=== PATIENT | female | born 1980 | race Caucasian/White ===

== ENCOUNTER 2016-07-29 13:15 | Inpatient (IN) | payer BC ==
[2016-07-29] MEDS ORDERED: Buffered Lidocaine 1% SYRIN* 3 ML/SYR SYRINGE INTRADERM PRN (15:24)
[2016-07-29] MEDS ORDERED: Lidocaine 1% MPF* 2 ML VIAL ONE (16:01)
[2016-07-29 16:42] LABS: Hematocrit 35 % (35-47); Hemoglobin 11.3 g/dl (12.0-16.0); Mean Corpuscular HGB Conc 33 g/dl (31-36); Mean Corpuscular Hemoglobin 29 pg (27-31); Mean Corpuscular Volume 88 fL (80-97); Mean Platelet Volume 9 um3 (7.4-10.4); Red Blood Count 3.94 10^6/ul (4.0-5.4); Red Cell Distribution Width 14 % (10.5-15); White Blood Count 10.5 10^3/ul (3.5-10.8)
[2016-07-29] MEDS ORDERED: OBEPIDURAL* 250 ML ONE (18:02)
[2016-07-29] MEDS ORDERED: Famotidine TAB* 20 MG PO PRN (18:56)
[2016-07-29] MEDS ORDERED: EPHEDrine (Pressors)* 50 MG/ML VIAL IV PUSH PRN ×2 (18:56)
[2016-07-29] MEDS ORDERED: Phenylephrine IV* 40 MCG/ML 10 ML SYRINGE IV PUSH PRN ×2 (18:56)
[2016-07-29] MEDS ORDERED: Sodium Citrate/Citric Acid* 15 ML UDC PO PRN (18:56)
[2016-07-29] MEDS ORDERED: OBEPIDURAL* 250 ML EPIDURAL SCH (19:00)
[2016-07-29] MEDS ORDERED: Oxytocin in LR* 20 UNITS/1,000 ML BAG IVPB ONE (19:31)
[2016-07-29] MEDS ORDERED: Oxytocin in LR* 20 UNITS/1,000 ML BAG IVPB SCH ×2 (20:00→23:45)
[2016-07-29] MEDS ORDERED: RHO D Immune Globulin (HUMAN)* 300 MCG = 1,500 I.U. INJ IM ONE (23:30)
[2016-07-29] MEDS ORDERED: Glycerin ADULT SUPP PR PRN (23:30)
[2016-07-29] MEDS ORDERED: Acetaminophen TAB* 325 MG PO PRN (23:30)
[2016-07-29] MEDS ORDERED: oxyCODONE/Acetamin 5/325 MG* TAB PO PRN (23:30)
[2016-07-30] MEDS: Witch Hazel PAD* JAR TOPICAL PRN ×2 (01:21→19:07)
[2016-07-30] MEDS: Dibucaine 1% 28.35 GM TUBE PR PRN ×2 (01:22→19:07)
[2016-07-30] MEDS: Ibuprofen TAB* 600 MG PO PRN ×2 (01:24→19:07)
[2016-07-30 06:20] LABS: Hematocrit 31 % (35-47); Hemoglobin 10.4 g/dl (12.0-16.0); Mean Corpuscular HGB Conc 33 g/dl (31-36); Mean Corpuscular Hemoglobin 29 pg (27-31); Mean Corpuscular Volume 88 fL (80-97); Mean Platelet Volume 9 um3 (7.4-10.4); Red Blood Count 3.59 10^6/ul (4.0-5.4); Red Cell Distribution Width 13 % (10.5-15); White Blood Count 11.5 10^3/ul (3.5-10.8)
[2016-07-30] MEDS ORDERED: Simethicone CHEW TAB* 80 MG PO SCH (08:30)
[2016-07-30] MEDS: Docusate CAP* 100 MG PO SCH ×3 (08:53→20:10)
[2016-07-30] MEDS ORDERED: Ferrous Gluconate TAB* 324 MG TAB PO SCH (09:00)
[2016-07-31] MEDS: Ibuprofen TAB* 600 MG PO PRN ×2 (00:55→08:35)
[2016-07-31 08:15] VITALS: BP 106/67
[2016-07-31] MEDS: Docusate CAP* 100 MG PO SCH (08:35)
== END 2016-07-31 11:05 | disposition home or self-care (01) | DRG 560 ==
LOC: MCHOBOUT 13:15 → MCHOB 15:26
PROVIDERS: ADMIT Midwife; ATTEND Midwife
PROC: 10907ZC Drainage of Amniotic Fluid, Therapeutic from Products of Conception, Via Natural or Artificial Opening (ICD-10-PCS; principal; 2016-07-29)
PROC: 10E0XZZ Delivery of Products of Conception, External Approach (ICD-10-PCS; 2016-07-29)
PROC: 4A1HXCZ Monitoring of Products of Conception, Cardiac Rate, External Approach (ICD-10-PCS; 2016-07-29)
PROC: 0KQM0ZZ Repair Perineum Muscle, Open Approach (ICD-10-PCS; 2016-07-29)
DX: O70.1 Second degree perineal laceration during delivery (principal); Z37.0 Single live birth; O09.523 Supervision of elderly multigravida, third trimester; Z3A.39 39 weeks gestation of pregnancy; Z82.79 Family history of other congenital malformations, deformations and chromosomal abnormalities; Z82.49 Family history of ischemic heart disease and other diseases of the circulatory system; Z87.891 Personal history of nicotine dependence
CPT/HCPCS: 36415; 85025; 86850; 86870; 86880; 86900; 86901; A9270-GY

== ENCOUNTER → 2018-07-19 05:34 | Day surgery (SDC) | payer OTHER ==
[~2018-07-19 05:34] MED LIST: Atracurium* 10 MG/ML 10 ML VIAL ONE; Buffered Lidocaine 1% SYRIN* 1 ML/SYRINGE INTRADERM ONE; Bupivacaine 0.25% SDV PF* 10 ML VIAL INJ ONE; Bupivacaine 0.25% W/EPI* 10 ML SDV ONE; Bupivacaine 0.5% W/EPI SDV* 30 ML VIAL ONE; Dexamethasone IV* 4 MG/ML 1 ML (4 MG) IV SLOW PU ONE; Dexamethasone IV* 4 MG/ML 1 ML (4 MG) ONE; DiMENhydriNATE IV* 50 MG/ML VIAL IV PUSH PRN; Famotidine IV* 10 MG/ML 2 ML (20 mg) IV ONE; Famotidine IV* 10 MG/ML 2 ML (20 mg) ONE; Ketorolac INJ* 30 MG/ML 1 ML VIAL ONE; Lactated Ringers 1000 ML Bag* 1,000 ML IV SCH; Lidocaine 1% INJ* 10 MG/ML 30 ML SDV ONE; Midazolam* 1 MG/ML 5 ML VIAL (5 MG) ONE; Naloxone* 0.4 MG/ML 1 ML VIAL IV PRN; Ondansetron INJ* 2 MG/ML VIAL IV PRN; Ondansetron INJ* 2 MG/ML VIAL ONE; Propofol* 10 MG/ML 20 ML BTL ONE; ceFAZolin 2 GM in NS PREMIX(*) 2 GM/100 ML BAG IVPB ONE; fentaNYL* 50 MCG/ML 2 ML VIAL (100 MCG VIAL) IV PRN; fentaNYL* 50 MCG/ML 5 ML VIAL (250 MCG VIAL) ONE; oxyCODONE/Acetamin 5/325 MG* TAB PO PRN
[2018-07-19 10:12] VITALS: BP 110/76
--- NOTE | 2018-07-19 23:24 | OP ---
DATE OF OPERATION: 07/19/18 - [facility] DATE OF : 80 SURGEON: Steve Harvey MD RN INFORMATICS: Kathryn Mera NP ANESTHESIA: Local with monitored anesthesia care with Dr. Yoder. PRE-OP DIAGNOSIS: Epigastric hernia. POST-OP DIAGNOSIS: Epigastric hernia. OPERATIVE PROCEDURE: Open repair with mesh of a midline epigastric hernia. ESTIMATED BLOOD LOSS: Minimal. SPECIMENS: None. COMPLICATIONS: None. DRAINS: None. WOUND CLASSIFICATION: 1. DESCRIPTION OF PROCEDURE: Written informed consent was obtained, the abdomen was marked with indelible ink and preoperative antibiotics were administered. The patient was taken to the operating room and placed in the supine position. Sequential compression devices and warming blanket were applied. Anesthesia was administered and the abdomen was prepped and draped in the usual sterile fashion. Time-out verification was completed. A small palpable bulge with hernia defect was approximately 2 to 3 fingerbreadths superior to the umbilicus at the midline. A small transverse incision was made just above the umbilicus. I did excise some scar tissue from a previous umbilical ring more superiorly. Our dissection carried down to the subcutaneous tissue, identified a rather large amount of fat protruding up through a midline fascial defect consistent with an epigastric hernia of approximately 1.5 to 2 cm in diameter. This fat was easily reduced and I developed a preperitoneal space undermining the fascia circumferentially for at least 2 cm margin surrounding the hernia. Next, a 6.4 cm Bard Ventralex dual-coated mesh was then placed in the preperitoneal space. I did not enter the peritoneum. This was sutured into position using the attached straps with 2 separate horizontal mattress 0 Vicryl suture. The mesh set nicely without evidence of wrinkling and covered the defect with generous overlap. The chalkyitsik fascia was then closed with interrupted 0 Vicryl suture in a transverse orientation. This additional Marcaine was infiltrated. The skin and subcutaneous tissue were closed with layers of 3-0 with 4-0 Vicryl sutures. Steri-Strips and sterile dressings were applied. The patient tolerated the procedure well and was taken to the recovery room in stable condition. [id number]/[facility] #: [id number] [facility]ITAL[facility]
== END | disposition home or self-care (01) ==
LOC: OR 05:34
PROVIDERS: ATTEND Surgery
DX: K43.9 Ventral hernia without obstruction or gangrene (principal); F32.9 Major depressive disorder, single episode, unspecified
CPT/HCPCS: 81025; C1781; J0690; J1100; J1885; J2250; J2405; J2704; J3010; J3490

== ENCOUNTER 2018-08-30 18:56 | Emergency (ER) | payer OTHER ==
--- OUTSIDE RECORDS SUMMARY | 2018-08-30 19:24 | XMS REPORT | Continuity of Care Document ---
:1980 External Reference #:[id number] Author Name TAYLER Sanchez Address [address] [facility] [facility] [place] [address] Care Team Providers Name Role Phone Yoko Gomes M.D. 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 Primary Care Physician Unavailable Payers Date Identification Numbers Payment Provider Subscriber Effective: 2018 Policy Number: [id number] Cign[employer]-MVP Dex Ospina Group Number: [id number] [id number] PayID: [id number] [place] [address] Effective: 2017 Policy Number: [id number] [employer] Nap Dex Ospina Expires: 2018 Group Name: [employer] [address] PayID: [id number] [place] [address] Advance Directives Description No Information Available Problems Active Problems Provider Date Premenstrual dysphoric disorder Yoko Gomes M.D. Onset: 02/10/2018 Family History Date Family Member(s) Observation Comments Father Diabetes Mellitus, II Father 75 Father Skin Cancer Mother Hypertension Mother 81 Mother Breast Cancer at age 76 Siblings 2 First Brother Diverticulitis Second Brother No Current Problems Paternal Grandmother due to Aneurysm () Social History Type Date Description Comments Sex Unknown Education Highest level completed, Associates Degree Education Highest level completed, Vocational Degree Marital Status Has been 1 time Lives With Spouse Lives With Children son and daughter Diet Healthy, Well Balanced Sleep Typically sleeps 9 hours a night Smoke-Free Home is smoke-free Pets 1 dog Pets 1 cat Work Status Unemployed Tobacco Use Start: Unknown End: Former Cigarette Smoker Unknown 1-5 Cigarettes Daily ETOH Use Denies alcohol use Recreational Drug Use Denies Drug Use Tobacco Use Start: Unknown End: Patient is a former Unknown smoker Exercise Type/Frequency Exercises regularly cardio, 30 min Allergies, Adverse Reactions, Alerts Active Allergies Reaction Severity Comments Date Lactose 04/12/2018 Inactive Allergies NKDA 08/08/2016 Medications Active Medications SIG Qnty Indications Ordering Provider Date Amoxicillin/Clavulana 1 by mouth twice 20tabs J06.9 Lissa Duran, TEACHER MUSIC 04/2019 te Potassium a day with food 875-125mg for 10 days Tablets Lorazepam 1 tab twice a 30tabs Junior Lin 05/18/2018 1mg Tablets day as needed MD Gilma Sertraline HCL 1.5 tabs by 45tabs Yoko Gomes M.DSandra 100mg mouth every day Tablets History Medications Lorazepam 1/2 tab bid prn 30tabs Yoko Gomes, 05/10/2018 - 1mg Tablets M.D. 05/10/2018 Lorazepam 1 pill bid prn 30tabs Yoko Gomes, 05/10/2018 - 0.5mg Tablets M.D. 05/18/2018 No Active Medications Unknown 08/08/2016 - 02/10/2018 Amoxicillin 1 by mouth three 30tabs 465.8 Lissa Duran, 07/21/2014 - 500mg times a day for TEACHER MUSIC 08/07/2016 Tablets 10 days Multivitamin Unknown - 08/07/2016 Tablets Lorazepam 1 by mouth twice Unknown - 0.5mg Tablets a day as needed 05/10/2018 anxiety Immunizations CPT Code Status Date Vaccine Lot # [id number] Given 02/10/2018 Influenza Vac, Quadrivalent, Slit Virus, Im [id number] Vital Signs Date Vital Result Comment 08/13/2018 9:32am BP Systolic 98 mmHg BP Diastolic 66 mmHg Heart Rate 62 /min Body Temperature 97.2 F Respiratory Rate 16 /min O2 % BldC Oximetry 97 % Ra Height 66.5 inches 5'6.50" Weight 176.00 lb BMI (Body Mass Index) 28.0 kg/m2 04/12/2018 6:22pm BP Systolic 118 mmHg BP Diastolic 60 mmHg Heart Rate 66 /min Body Temperature 97.9 F Respiratory Rate 16 /min Height 66.5 inches 5'6.50" Weight 175.25 lb BMI (Body Mass Index) 27.9 kg/m2 Right Visual Acuity Distance 20/70 Left Visual Acuity Distance 20/40 02/10/2018 8:50am BP Systolic 128 mmHg BP Diastolic 70 mmHg Heart Rate 72 /min Body Temperature 97.3 F Height 68 inches 5'8" Weight 183.00 lb BMI (Body Mass Index) 27.8 kg/m2 08/08/2016 1:03pm BP Systolic 90 mmHg BP Diastolic 52 mmHg Heart Rate 84 /min Body Temperature 98.2 F Height 66.75 inches 5'6.75" Weight 191.12 lb BMI (Body Mass Index) 30.2 kg/m2 07/21/2014 11:08am BP Systolic 102 mmHg BP Diastolic 62 mmHg Heart Rate 80 /min Body Temperature 98.2 F Height 66.75 inches 5'6.75" Weight 205.00 lb BMI (Body Mass Index) 32.3 kg/m2 Results Test Date Facility Test Result H/L Range Note Laboratory test 05/15/2018 R[facility] Wilburn TSH 1.43 mIU/L 0.50-6.00 finding CBC Electronic Fma 05/15/2018 R[facility] Wilburn WBC 6.4 x10^3/UL 4.0-10.0 RBC 4.65 x10^6/UL 3.93-6.00 HGB 14.3 g/dL 12.0-17.0 HCT 45 % 35-50 MCV 95.0 fL 80.0-95.0 MCH 30.8 pg 25.6-32.2 MCHC 32.2 g/dL 32.2-36.0 RDW-CV 13.0 % 11.6-14.4 PLT 244 x10^3/UL 163-400 MPV 10.9 fL 9.4-12.4 Minnie# 4.00 x10^3/UL 1.56-6.13 Lymph# 1.71 x10^3/UL 1.18-3.74 Murray# 0.48 x10^3/UL 0.24-0.82 Eos # 0.1 x10^3/UL 0.0-0.5 Baso # 0.05 x10^3/UL 0.01-0.08 Minnie% 62.8 % 34.0-70.0 Lymph % 26.8 % 20.0-52.0 Murray% 7.5 % 5.0-12.0 Eos% 1.9 % 0.7-7.0 Baso% 0.8 % 0.1-1.2 Comprehensive Metabolic Prof 05/15/2018 Rink[facility] Wilburn Sodium 142 mEq/L 134-149 Potassium 4.6 mEq/L 3.6-5.5 Chloride 109 mEq/L 94-112 Carbon Dioxide 25 mEq/L 21-32 Glucose 101 mg/dL 70-105 BUN 9 mg/dL 6-26 Creatinine 0.8 mg/dL 0.6-1.4 BUN/Creat Ratio 11.3 CALC 8.0-36.0 Calcium 9.6 mg/dL 8.6-10.2 Total Protein 6.8 g/dL 6.4-8.3 Albumin 4.7 g/dL 3.8-5.5 Globulin 2.1 g/dL 2.0-4.8 A/G Ratio 2.2 CALC 0.6-2.3 Alk. Phosphatase 66 U/L 30-110 Alt (SGPT) 16 U/L 7-35 Ast (Sgot) 16 U/L 5-34 Total Bilirubin 0.9 mg/dL 0.2-1.3 GFR Non- >60 ml/min/1.73m^ >=60 GFR >60 ml/min/1.73m^ >=60 Lipid Profile 05/15/2018 Rinku Wilburn Cholesterol 136 mg/dL 120-200 Triglycerides 74 mg/dL 30-200 HDL Cholesterol 62 mg/dL 30-85 LDL (Calculated) 59 CALC 0-129 VLDL Cholesterol 15 mg/dL 0-50 HDL Risk Factor 2.2 CALC 0.0-4.4 Procedures Date Code Description Status 04/12/2018 57481 Vision Test- screening test of visual acuity, Completed quantitative, bila Encounters Type Date Location Provider Dx Diagnosis Office Visit 04/12/2018 Main Office Yoko Gomes M.D. Z00.01 Encounter for 6:20p general adult medical exam w abnormal findings F32.81 Premenstrual dysphoric disorder H52.13 Myopia, bilateral Office Visit 02/10/2018 8:40a [facility] Yoko Gomes L82.1 Other seborrheic M.D. keratosis F32.81 Premenstrual dysphoric disorder Z23 Encounter for immunization Office Visit 08/08/2016 1:00p [facility] Juan Cristina82.1 Other seborrheic M.D. keratosis Office Visit 07/21/2014 11:00a Main Office Lissa Duran, 465.8 Upper Respiratory TEACHER MUSIC Infections Acute Other Multiple Sites V22.2 State Incidental Normal Plan of Treatment Future Appointment(s):09/23/2018 9:40 am - Yoko Gomes M.D. at Main Vkhjwz1804/2019 - Lissa Duran, FNPJ06.9 Acute upper respiratory infection, unspecifiedNew Medication:Amoxicillin/Clavulanate Potassium 875-125 mg - 1 by mouth twice a day with food for 10 daysComments:pt. instructed to take augmentin as prescribed w/ meals to decrease GI upset.Pt. counseled to drink at least 2L fluid/day. rest as much as possible and consider saline lavage of nares.Pt. should continue to take mucinex or similar expectorant to assist in clearing secretions.Follow up:pt. should f/u w/ office for any change in sx. or worsening sx. including dyspnea, chest tightness, fever, or SOB.
--- OUTSIDE RECORDS SUMMARY | 2018-08-30 19:24 | XMS REPORT | Continuity of Care Document ---
:1980 External Reference #:[id number] Author Name TAYLER Sanchez Address [address] [facility] [place] [address] Care Team Providers Name Role Phone Yoko Gomes M.D. 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 Primary Care Physician Unavailable Payers Date Identification Numbers Payment Provider Subscriber Effective: 2018 Policy Number: [id number] [employer]-MVP Dex Ospina Group Number: [id number] [address] PayID: [id number] [place] [address] Effective: 2017 Policy Number: [id number] [employer] Nap Dex Ospina Expires: 2018 Group Name: [employer] [address] PayID: [id number] [place] [address] Advance Directives Description No Information Available Problems [...] by mouth twice 20tabs J06.9 Lissa Duran, TAP OUT OPERATOR 04/2019 te Potassium a day with food [...] 07/21/2014 - 500mg times a day for TAP OUT OPERATOR 08/07/2016 Tablets 10 days Multivitamin Unknown - 08/07/2016 Tablets Lorazepam 1 by mouth twice Unknown - 0.5mg Tablets a day as needed 05/10/2018 anxiety Immunizations CPT Code Status Date Vaccine Lot # [id number] Given 02/10/2018 Influenza Vac, Quadrivalent, Slit Virus, Im [id number] Vital Signs Date Vital Result Comment 08/13/2018 [...] 4.00 x10^3/UL 1.56-6.13 Lymph# 1.71 x10^3/UL 1.18-3.74 [place]# 0.48 x10^3/UL 0.24-0.82 Eos # 0.1 x10^3/UL 0.0-0.5 Baso # 0.05 x10^3/UL 0.01-0.08 Minnie% 62.8 % 34.0-70.0 Lymph % 26.8 % 20.0-52.0 [place]% 7.5 % 5.0-12.0 Eos% 1.9 % 0.7-7.0 [...] 0.0-4.4 Procedures Date Code Description Status 04/12/2018 08054 Vision Test- screening test of visual acuity, [...] Main Office Lissa Duran, 465.8 Upper Respiratory TAP OUT OPERATOR Infections Acute Other Multiple Sites V22.2 State Incidental Normal Plan of Treatment Future Appointment(s):09/23/2018 9:40 am - Yoko Gomes M.D. at Main [id number]/2019 - Lissa Duran, FNPJ06.9 Acute upper respiratory [...]
[2018-08-30 19:34] VITALS: BP 108/62
[2018-08-30] MEDS ORDERED: DOXYcycline CAP(*) 100 MG PO ONE ×2 (19:55→19:56)
--- NOTE | 2018-08-30 19:55 | UC ---
Skin Complaint HPI - HPI Summary HPI Summary: Ms. Ospina noticed a tick on the left posterior shoulder area today. She brings it in in a plastic bag. 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 - History of Current Complaint Chief Complaint: UCSkin Time Seen by Provider: 08/30/18 19:46 Stated Complaint: TICK BITE Hx Last Menstrual Period: 3 WEEKS AGO Pain Intensity: 3 - Allergy/Home Medications Allergies/Adverse Reactions: Allergies Allergy/AdvReac Type Severity Reaction Status Date / Time lactose Allergy INTOLERANT Verified 08/30/18 19:34 PMH/Surg Hx/FS Hx/Imm Hx Previously Healthy: Yes - Surgical History Surgical History: Yes Surgery Procedure, Year, and Place: WISDOM TEETH, HERNIA REPAIR (JULY 2018) - Social History Alcohol Use: None Substance Use Type: None Smoking Status (MU): Former Smoker Type: Cigarettes Amount Used/How Often: 1/2 PPD X 20 YEARS Have You Smoked in the Last Year: No When Did the Patient Quit Smoking/Using Tobacco: 2014 - Immunization History Most Recent Influenza Vaccination: declined Most Recent Tetanus Shot: 07/26/14 Most Recent Pneumonia Vaccination: none Review of Systems All Other Systems Reviewed And Are Negative: Yes Physical Exam - Summary Physical Exam Summary: She was nontoxic in appearance with stable vital signs. Triage Information Reviewed: Yes Appearance: Well-Appearing Vital Signs: Initial Vital Signs Temp 97.5 F 08/30/18 19:31 Pulse 69 08/30/18 19:31 Resp 16 08/30/18 19:31 BP 108/62 08/30/18 19:31 Pulse Ox 100 08/30/18 19:31 Vital Signs Reviewed: Yes Skin Exam: Other - Puncture wound to the posterior left shoulder. Mild erythema about 1-2 mm in radius Course/Dx - Course Course Of Treatment: She brought a small deer tick in the bag. It's not moving. It doesn't look engorged to made but she would prefer to have prophylaxis. - Diagnoses Provider Diagnosis: Tick bite of back Discharge - Sign-Out/Discharge Documenting (check all that apply): Patient Departure All imaging exams completed and their final reports reviewed: No Studies - Discharge Plan Condition: Stable Disposition: HOME Patient Education Materials: Tick Bite (ED) Referrals: Yoko Gomes MD [Primary Care Provider] - - Billing Disposition and Condition Condition: STABLE Disposition: Home
== END 2018-08-30 20:16 | disposition home or self-care (01) ==
LOC: UCEAST 18:56
DX: S40.262A Insect bite (nonvenomous) of left shoulder, initial encounter (principal); L53.9 Erythematous condition, unspecified; W57.XXXA Bitten or stung by nonvenomous insect and other nonvenomous arthropods, initial encounter; Y92.9 Unspecified place or not applicable; Z87.891 Personal history of nicotine dependence
CPT/HCPCS: 99212; A9270-GY; G0463

== ENCOUNTER 2018-10-03 11:37 | Emergency (ER) | payer OTHER ==
--- OUTSIDE RECORDS SUMMARY | 2018-10-03 12:13 | XMS REPORT | Continuity of Care Document ---
:1980 External Reference #:[id number] Author Name Yoko Gomes M.D. Address [address] [facility] [place] [address] Care Team Providers Name Role Phone Yoko Gomes M.D. 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 Primary Care Physician Unavailable Payers Date Identification Numbers Payment Provider Subscriber Effective: 2018 Policy Number: [id number] Cign[employer]-MVP Dex Ospina Group Number: [id number] [address] PayID: [id number] [place] [address] Effective: 2017 Policy Number: [id number] [employer] Nap Dex Ospina Expires: 2018 Group Name: [employer] [address] PayID: [id number] [place] [address] Advance Directives Description No Information Available Problems [...] Medications SIG Qnty Indications Ordering Provider Date Mirena (52 MG) 2016 [facility], 09/23/2018 M.D. 20mcg/24HR IUD Lorazepam 1 tab twice a day 30tabs [facility], 05/18/2018 1mg Tablets as needed M.D. Sertraline HCL Take 1 And 1/2 45tabs [facility], 100mg Tablets By Mouth M.D. Tablets Once Every Day as Directed History Medications Amoxicillin/Clavulanate 1 by mouth 20tabs J06.9 Lissa Duran, 08/13/2018 - Potassium twice a day ACADEMY DIRECTOR 09/23/2018 875-125mg Tablets with food for 10 days Lorazepam 1/2 tab bid 30tabs [facility], 05/10/2018 - 1mg Tablets prn M.D. 05/10/2018 Lorazepam 1 pill bid 30tabs [facility], 05/10/2018 - 0.5mg Tablets prn M.D. 05/18/2018 No Active Medications Unknown 08/08/2016 - 02/10/2018 Amoxicillin 1 by mouth 30tabs 465.8 Lissa Duran, 07/21/2014 - 500mg Tablets three times a ACADEMY DIRECTOR 08/07/2016 day for 10 days Multivitamin Unknown - Tablets 08/07/2016 Lorazepam 1 by mouth Unknown - 0.5mg Tablets twice a day 05/10/2018 as needed anxiety Immunizations CPT Code Status Date Vaccine Lot # [id number] Given 02/10/2018 Influenza Vac, Quadrivalent, Slit Virus, Im [id number] Vital Signs Date Vital Result Comment 09/23/2018 9:51am BP Systolic 110 mmHg BP Diastolic 80 mmHg Heart Rate 77 /min Body Temperature 98.4 F Respiratory Rate 12 /min Height 66.5 inches 5'6.50" Weight 176.00 lb BMI (Body Mass Index) 28.0 kg/m2 08/13/2018 9:32am BP Systolic 98 mmHg BP [...] H/L Range Note Laboratory test 05/15/2018 Rinku Akila([facility]) TSH 1.43 mIU/L 0.50-6.00 finding CBC Electronic a 05/15/2018 Dobbs Flora([facility]) WBC 6.4 x10^3/UL 4.0- 10.0 RBC 4.65 x10^6/UL 3.93-6.00 HGB 14.3 g/dL 12.0-17.0 HCT 45 % 35-50 MCV 95.0 fL 80.0-95.0 MCH 30.8 pg 25.6-32.2 MCHC 32.2 g/dL 32.2-36.0 RDW-CV 13.0 % 11.6-14.4 PLT 244 x10^3/UL 163-400 MPV 10.9 fL 9.4-12.4 Minnie# 4.00 x10^3/UL 1.56-6.13 Lymph# 1.71 x10^3/UL 1.18-3.74 [place]# 0.48 x10^3/UL 0.24-0.82 Eos # 0.1 x10^3/UL 0.0-0.5 Baso # 0.05 x10^3/UL 0.01-0.08 Minnie% 62.8 % 34.0-70.0 Lymph % 26.8 % 20.0-52.0 [place]% 7.5 % 5.0-12.0 Eos% 1.9 % 0.7-7.0 Baso% 0.8 % 0.1-1.2 Comprehensive Metabolic 05/15/2018 Rinku Wilburn(fma) Sodium 142 mEq/L 134-149 Prof Potassium 4.6 mEq/L 3.6-5.5 Chloride 109 mEq/L [...] >60 ml/min/1.73m^ >=60 Lipid Profile 05/15/2018 Rinku Wilburn(fma) Cholesterol 136 mg/dL 120- 200 Triglycerides 74 mg/dL 30-200 HDL Cholesterol 62 mg/dL 30-85 LDL (Calculated) 59 CALC 0-129 VLDL Cholesterol 15 mg/dL 0-50 HDL Risk Factor 2.2 CALC 0.0-4.4 Procedures Date Code Description Status 08/13/2018 34129 Pulse Oximetry Completed 04/12/2018 37528 Vision Test- screening test of visual acuity, Completed quantitative, bila Encounters Type Date Location Provider Dx Diagnosis Office Visit 08/13/2018 Main Office Lissa Renee, ACADEMY DIRECTOR J06.9 Acute upper 9:30a respiratory infection, unspecified Office Visit 04/12/2018 Main Office Yoko Gomes M.D. Z00.01 Encounter for general 6:20p adult medical exam w abnormal findings F32.81 Premenstrual dysphoric disorder H52.13 Myopia, bilateral Office Visit 02/10/2018 8:40a [facility] Yoko Gomes, L82.1 Other seborrheic M.D. keratosis F32.81 Premenstrual dysphoric disorder Z23 Encounter for immunization Office Visit 08/08/2016 1:00p [facility] Yoko Gomes L82.1 Other seborrheic M.D. keratosis Office Visit 07/21/2014 11:00a Main Office Lissa Duran, 465.8 Upper Respiratory ACADEMY DIRECTOR Infections Acute Other Multiple Sites V22.2 State Incidental Normal Plan of Treatment 09/23/2018 - Yoko Gomes M.D.F32.81 Premenstrual dysphoric disorderComments: continue sertraline, keep track of menses with phone kenia; continue doygokizaY73.9 Allergic rhinitis, unspecifiedComments:take claritin daily as needed, use mask while cleaningFollow up:physicalAllNew Medication:Mirena (52 MG ) 20 mcg/24HR - 2016Comments:Medication Management Patient Understands medications she's taking? Yes No Are there Barriers to Adherence? Yes No Has the patient been asked about herbal supplements and therapies, and OTC meds? Yes No
[2018-10-03 12:23] VITALS: BP 112/69
--- NOTE | 2018-10-03 12:33 | UC ---
UC General HPI - HPI Summary HPI Summary: 38-year-old otherwise healthy female presents with approximately 4 days of cough , congestion, sore throat, bilateral ear pain and headache. She states that both of her children have been ill with ear infections. She denies any fever and is a nonsmoker. - History of Current Complaint Chief Complaint: UCGeneralIllness Stated Complaint: SORE THROAT Time Seen by Provider: 10/03/18 12:14 Hx Obtained From: Patient Hx Last Menstrual Period: 10/01/18 Pain Intensity: 7 - Allergy/Home Medications Allergies/Adverse Reactions: Allergies Allergy/AdvReac Type Severity Reaction Status Date / Time lactose Allergy INTOLERANT Verified 10/03/18 12:16 PMH/Surg Hx/FS Hx/Imm Hx Previously Healthy: Yes - Surgical History Surgical History: Yes Surgery Procedure, Year, and Place: WISDOM TEETH, HERNIA REPAIR (JULY 2018) - Family History Known Family History: Positive: Other - Both children with ear infections - Social History Lives: With Family Alcohol Use: None Substance Use Type: None Smoking Status (MU): Former Smoker Type: Cigarettes Amount Used/How Often: 1/2 PPD X 20 YEARS Have You Smoked in the Last Year: No When Did the Patient Quit Smoking/Using Tobacco: 2014 - Immunization History Most Recent Influenza Vaccination: declined Most Recent Tetanus Shot: 07/26/14 Most Recent Pneumonia Vaccination: none Review of Systems All Other Systems Reviewed And Are Negative: Yes Constitutional: Negative: Fever Skin: Positive: Negative ENT: Positive: Sore Throat, Ear Ache, Nasal Discharge, Sinus Congestion. Negative: Sinus Pain/Tenderness Respiratory: Positive: Cough Gastrointestinal: Positive: Negative Physical Exam Triage Information Reviewed: Yes Appearance: Well-Appearing, No Pain Distress, Well-Nourished Vital Signs: Initial Vital Signs Temp 97.8 F 10/03/18 12:17 Pulse 81 10/03/18 12:17 Resp 16 10/03/18 12:17 BP 112/69 10/03/18 12:17 Pulse Ox 99 10/03/18 12:17 Vital Signs Reviewed: Yes Eyes: Positive: Conjunctiva Clear ENT: Positive: Pharynx normal, Nasal congestion, Nasal drainage, TMs normal. Negative: Tonsillar swelling, Tonsillar exudate, Sinus tenderness Neck: Positive: Supple, Nontender, No Lymphadenopathy Respiratory: Positive: Lungs clear Cardiovascular: Positive: RRR Musculoskeletal Exam: Normal Neurological: Positive: Alert Psychological Exam: Normal Skin Exam: Normal Course/Dx - Course Course Of Treatment: Minor cough and cold symptoms. Ears are clear. Treat symptomatically. - Differential Dx - Multi-Symptom Differential Diagnoses: Other - Otitis media, pneumonia, strep pharyngitis, URI - Diagnoses Provider Diagnosis: Upper respiratory infection Discharge - Sign-Out/Discharge Documenting (check all that apply): Patient Departure All imaging exams completed and their final reports reviewed: No Studies - Discharge Plan Condition: Improved Disposition: HOME Prescriptions: Dexamethasone TAB* [Decadron TAB*] 8 mg PO DAILY #10 tab Guaifenesin/Pseudoephedrne HCl [Mucinex D] 1 tab PO BID PRN #14 tab PRN Reason: Congestion Oxymetazoline 0.05% NASAL SPR* [Afrin 0.05% NASAL SPRAY*] 1 spray NASAL TID PRN 3 Days #1 btl PRN Reason: Congestion Patient Education Materials: Upper Respiratory Infection (ED) Referrals: Yoko Gomes MD [Primary Care Provider] - Additional Instructions: Humidifier while sleeping. Avoid smoke and smokers. Return with high fever, difficulty breathing, worse, new symptoms or other concerns. Call tomorrow to schedule follow-up with your doctor. - Billing Disposition and Condition Condition: IMPROVED Disposition: Home
== END 2018-10-03 12:30 | disposition home or self-care (01) ==
LOC: UCEAST 11:37
DX: J06.9 Acute upper respiratory infection, unspecified (principal); Z87.891 Personal history of nicotine dependence
CPT/HCPCS: 99212; G0463

== ENCOUNTER 2019-01-25 15:59 | Emergency (ER) | payer OTHER ==
[2019-01-25] MEDS ORDERED: Famotidine IV* 10 MG/ML 2 ML (20 mg) ONE (16:10)
[2019-01-25] MEDS ORDERED: diPHENhydraMINE IV* 50 MG/ML 1 ml VIAL (BENADRYL) IV ONE (16:12)
[2019-01-25] MEDS ORDERED: EPINEPHRINE 1 MG/ML 1 ML VIAL IM ONE (16:12)
[2019-01-25] MEDS ORDERED: Famotidine IV* 10 MG/ML 2 ML (20 mg) IV SLOW PU ONE (16:12)
[2019-01-25] MEDS ORDERED: methylPREDNISolone 125 MG* 2 ML VIAL IV ONE (16:12)
[2019-01-25] MEDS ORDERED: NS 0.9% 1000 ML** 1,000 ML IV ONE (16:13)
--- NOTE | 2019-01-25 19:02 | ED ---
Allergic Reaction/Systemic - HPI Summary HPI Summary: This patient is a 38 year old F arriving via ambulance to [facility] accompanied and children with a chief complaint of allergic reaction to a bee sting since 1500. Patient states that she was outside doing yard work and was stung by a bee. Patient states that her lungs feel like "razor blades". The patient rates the pain 5/10 in severity. Symptoms aggravated by nothing. Symptoms alleviated by nothing. Patient reports SOB and MEMANUEL. Patient denies nausea and vomiting. Patient denies substance abuse, tobacco use and EtOH use. Allergies Allergy/AdvReac Type Severity Reaction Status Date / Time lactose Allergy INTOLERANT Verified 10/03/18 12:16 Home Medications Medication Instructions Recorded Confirmed Type LORazepam TAB(*) [Ativan 1 MG TAB 1 mg PO TID PRN 07/12/18 10/03/18 History (*)] Multivitamin [Multiple Vitamins] 1 tab PO QAM 07/12/18 10/03/18 History Sertraline* [Zoloft*] 150 mg PO 0800 07/12/18 10/03/18 History Dexamethasone TAB* [Decadron TAB*] 8 mg PO DAILY #10 tab 10/03/18 Rx Guaifenesin/Pseudoephedrne HCl 1 tab PO BID PRN #14 tab 10/03/18 Rx [Mucinex D] Oxymetazoline 0.05% NASAL SPR* 1 spray NASAL TID PRN 3 Days #1 btl 10/03/18 Rx [Afrin 0.05% NASAL SPRAY*] EPINEPHrine [Epipen 2-Brandin] 0.3 mg IM ONCE PRN #1 inj 01/25/19 Rx - History of Current Complaint Chief Complaint: EDAllergicReaction Time Seen by Provider: 01/25/19 16:12 Hx 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 Negative: Vomiting - Allergies/Home Medications Allergies/Adverse Reactions: Allergies Allergy/AdvReac Type Severity Reaction Status Date / Time lactose Allergy INTOLERANT Verified 10/03/18 12:16 PMH/Surg Hx/FS Hx/Imm Hx Endocrine/Hematology History: Reports: Hx Diabetes - HX OF GESTATIONAL-4 YEARS AGO- REPORTS NO PROBLEMS SINCE Cardiovascular History: Denies: Other Cardiovascular Problems/Disorders Respiratory History: Denies: Hx Asthma, Other Respiratory Problems/Disorders GI History: Denies: Other GI Disorders History: Denies: Other Problems/Disorders Musculoskeletal History: Denies: Other Musculoskeletal History Sensory History: Reports: Hx Contacts or Glasses - GLASSES Denies: Hx Hearing Aid Opthamlomology History: Reports: Hx Contacts or Glasses - GLASSES Neurological History: Reports: Hx Migraine - OCCASIONALLY-TREATS WITH REST AND IBUPROFEN Denies: Other Neuro Impairments/Disorders Psychiatric History: Reports: Hx Anxiety - ON MEDICATION FOR, Hx Depression - ON MEDICATION FOR - Surgical History Surgery Procedure, Year, and Place: WISDOM TEETH, HERNIA REPAIR (JULY 2018) Hx Anesthesia Reactions: No Infectious Disease History: No Infectious Disease History: Denies: History Other Infectious Disease, Traveled Outside the [place] in Last 30 Days - Family History Known Family History: Positive: Other - Both children with ear infections - Social History Alcohol Use: None Substance Use Type: Reports: None Hx Tobacco Use: Yes Smoking Status (MU): Former Smoker Type: Cigarettes Amount Used/How Often: 1/2 PPD X 20 YEARS Have You Smoked in the Last Year: No Review of Systems Positive: Shortness Of Breath Negative: Vomiting, Nausea Positive: Rash - hives on abdomen Positive: Headache All Other Systems Reviewed And Are Negative: Yes Physical Exam - Summary Physical Exam Summary: Constitutional: Well-developed, Well-nourished, Alert. (-) Distressed, anxious Skin: Warm, Dry HENT: Normocephalic; Atraumatic, pharyngeal edema Eyes: Conjunctiva normal Neck: Musculoskeletal ROM normal neck. (-) JVD, (-) Stridor, (-) Tracheal deviation Cardio: Rhythm regular, rate normal, Heart sounds normal; Intact distal pulses; The pedal pulses are 2+ and symmetric. Radial pulses are 2+ and symmetric. (-) Murmur Pulmonary/Chest wall: Effort normal. (-) Respiratory distress, (-) Wheezes, (-) Rales, no stidor Abd: Soft, (-) tenderness, (-) Distension, (-) Guarding, (-) Rebound, Urticaria on abdomen Musculoskeletal: (-) Edema Lymph: (-) Cervical adenopathy Neuro: Alert, Oriented x3 Psych: Mood and affect Normal Triage Information Reviewed: Yes Vital Signs On Initial Exam: Initial Vitals Temp Pulse Resp BP Pulse Ox 98.2 F 76 17 141/88 95 01/25/19 16:01 01/25/19 16:01 01/25/19 16:01 01/25/19 16:01 01/25/19 16:01 Vital Signs Reviewed: Yes Diagnostics - Vital Signs Vital Signs Temp Pulse Resp BP Pulse Ox 01/25/19 18:08 80 16 110/64 97 01/25/19 18:00 82 19 97 01/25/19 17:38 76 17 109/68 100 01/25/19 17:28 72 17 116/72 99 01/25/19 17:13 70 20 118/73 100 01/25/19 17:00 72 15 100 01/25/19 16:58 69 18 117/73 100 01/25/19 16:43 71 21 120/75 100 01/25/19 16:28 68 20 134/85 100 01/25/19 16:14 69 24 114/85 100 01/25/19 16:08 65 18 119/78 99 01/25/19 16:07 16 01/25/19 16:01 98.2 F 76 17 141/88 95 - Laboratory Lab Statement: Any lab studies that have been ordered have been reviewed, and results considered in the medical decision making process. Allergic Reaction Course/Dx - Course Course Of Treatment: Patient is here with likely anaphylaxis to bee sting. Patient had the feeling of shortness of breath accompanied by urticarial rash. Patient was given epinephrine, Pepcid, Benadryl, Solu-Medrol, IV fluids and monitored for 2 hours. Patient had vast improvement in her symptoms. Patient is discharged with an EpiPen. - Diagnoses Provider Diagnoses: Anaphylactic urticaria, Bee sting - Critical Care Time Critical Care Time: 30-74 min Discharge ED - Sign-Out/Discharge Documenting (check all that apply): Patient Departure - discharge Patient Received Moderate/Deep Sedation with Procedure: No - Discharge Plan Condition: Stable Disposition: HOME Prescriptions: EPINEPHrine [Epipen 2-Brandin] 0.3 mg IM ONCE PRN #1 inj PRN Reason: anaphylaxis Patient Education Materials: Insect Bite or Sting (ED) Referrals: Yoko Gomes MD [Primary Care Provider] - 3 Days Additional Instructions: PLEASE RETURN TO EMERGENCY DEPARTMENT FOR ANY NEW OR WORSENING SYMPTOMS ESPECIALLY FOR TROUBLE BREATHING, VOMITING AND DIARRHEA. FOLLOW UP WITH YOUR PRIMARY CARE PHYSICIAN IN 1-3 DAYS. IF YOU GET STUNG BY A BEE AGAIN PLEASE EPI PEN AND CALL 911. - Billing Disposition and Condition Condition: STABLE Disposition: Home - Attestation Statements Document Initiated by Scribe: Yes Documenting Scribe: Sandy Dela Cruz Provider For Whom Greg is Documenting (Include Credential): Dr. Ander August MD Scribe Attestation: Sandy Stanford , scribed for Dr. Ander August MD on 01/28/19 at 0741. Scribe Documentation Reviewed: Yes Provider Attestation: The documentation as recorded by the Sandy garcia accurately reflects the service I personally performed and the decisions made by me, Dr. Ander August MD Status of Scribe Document: Viewed
[2019-01-25 19:14] VITALS: BP 112/67
== END 2019-01-25 19:10 | disposition home or self-care (01) ==
LOC: ED 15:59
DX: T63.441A Toxic effect of venom of bees, accidental (unintentional), initial encounter (principal); T78.2XXA Anaphylactic shock, unspecified, initial encounter; Y92.9 Unspecified place or not applicable; F41.9 Anxiety disorder, unspecified; F32.9 Major depressive disorder, single episode, unspecified; Z79.899 Other long term (current) drug therapy; Z87.891 Personal history of nicotine dependence
CPT/HCPCS: 96361; 96372; 96374; 96375; 99283; J1200; J2930

== ENCOUNTER 2019-02-05 15:59 | Emergency (ER) | payer OTHER ==
--- OUTSIDE RECORDS SUMMARY | 2019-02-05 16:04 | XMS REPORT | Continuity of Care Document ---
:1980 External Reference #:[id number] Author Name Peyman Paul Address [address] [place] [address] Care Team Providers Name Role Phone Yoko Gomes M.D. - Family Medicine Care Team Information Rougher Helper Unavailable Steve Harvey - Surgery Care Team Information Rougher Helper [phone] Problems Active Problems Provider Date Premenstrual dysphoric disorder Yoko Gomes M.D. Onset: 02/10/2018 Social History Type Date Description Comments Sex Unknown Tobacco Use Start: Unknown End: Former Cigarette [...] Ordering Provider Date Mirena (52 MG) 2016 Yoko Gomes, 09/23/2018 M.D. 20mcg/24HR IUD Lorazepam Take One Tablet 30tabs Yoko Gomes, 05/18/2018 1mg Tablets By Mouth Twice A M.D. Day as Needed, Max/Day 2 Tablets Sertraline HCL Take 1 And 1/2 45tabs Yoko Gomes, 100mg Tablets By Mouth M.D. Tablets Once Every Day as Directed History Medications Sulfacetamide Sodium 1-2 drops into 15ml Shantel Pabon, 10/09/2018 - affected eye Peyman 10/16/2018 10% Solution every four hours while awake until clear, continue for one more day. not to exceed 7 days of use Amoxicillin/Clavulana 1 by mouth twice 20tabs J06.9 TAYLER Sanchez 04/2019 - te Potassium a day with food 09/23/2018 875-125mg for 10 days Tablets Immunizations CPT Code Status Date Vaccine Lot # [id number] Given 02/10/2018 Influenza Vac, Quadrivalent, Slit Virus, Im [id number] Vital Signs Date Vital Result Comment 01/26/2019 1:13pm BP Systolic 112 mmHg BP Diastolic 62 mmHg Heart Rate 68 /min Body Temperature 98.2 F Respiratory Rate 16 /min Height 66.5 inches 5'6.50" 10/09/2018 12:11pm BP Systolic 120 mmHg BP Diastolic 60 mmHg Heart Rate 72 /min Body Temperature 98.0 F Respiratory Rate 16 /min Height 66.5 inches 5'6.50" Weight 176.00 lb BMI (Body Mass Index) 28.0 kg/m2 Results Description No Information Available Procedures Date Code Description Status 08/13/2018 62803 Pulse Oximetry Completed Medical Devices Description No Information Available Encounters Type Date Location Provider Dx Diagnosis Office Visit 10/09/2018 Main Office Shantel Pabon, B30.9 Viral conjunctivitis, 12:00p Afnp-C unspecified Office Visit 09/23/2018 Main Office Yoko Gomes M.D. F32.81 Premenstrual 9:40a dysphoric disorder J30.9 Allergic rhinitis, unspecified Office Visit 08/13/2018 9:30a Main Office TAYLER Sanchez J06.9 Acute upper respiratory infection, unspecified Assessments Date Code Description Provider 01/26/2019 T63.441A Toxic effect of venom of bees, Peyman Paul accidental (unintentional), initial encounter 10/09/2018 B30.9 Viral conjunctivitis, unspecified Peyman Paul 09/23/2018 F32.81 Premenstrual dysphoric disorder Yoko Gomes M.D. 09/23/2018 J30.9 Allergic rhinitis, unspecified Yoko Gomes M.D. 08/13/2018 J06.9 Acute upper respiratory infection, TAYLER Sanchez unspecified Plan of Treatment Future Appointment(s):04/13/2019 8:20 am - Yoko Gomes M.D. at [facility] Klvtzo7601/26/2019 - Renu Paul-CT63.441A Toxic effect of venom of bees, accidental (unintentional), initial encounterFollow up:Followup:. (Follow up)AllComments:Medication Management Patient Understands medications she's taking? Yes No Are there Barriers to Adherence? Yes No Has the patient been asked about herbal supplements and therapies, and OTC meds? Yes No Care Plan1. Patient has been queried about patient's goals/ preferences and functional/lifestyle goals at relevant visits. If relevant, describe: na2. Treatment goals as explained to the patient: abovesx resolution 3. Are there barriers to meeting treatment goals? Yes No If Yes, please describe:4. 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
[2019-02-05 16:11] VITALS: BP 114/74
[2019-02-05] MEDS ORDERED: predniSONE TAB* 20 MG PO ONE (16:45)
--- NOTE | 2019-02-05 16:45 | UC ---
Allergic Reaction HPI - HPI Summary HPI Summary: 38-year-old female presents to urgent care for a yellowjacket sting to her right middle finger. States she was stung approximately 3:00 PM. She was seen in the emergency room approximately one week ago for a bee sting in which she developed hives without swelling in the lips, tongue, or throat or any difficulty breathing however she was prescribed an epinephrine autoinjector at that time. States she used one of her autoinjectors immediately after she was stung and also took Benadryl 50 mg PO. States she has some redness and swelling of the right middle finger but never developed any hives, swelling of the lips, tongue, throat, or difficulty breathing. She did note a headache, tachycardia, and shakiness after using the autoinjector. - History of Current Complaint Chief Complaint: UCAllergicReaction Stated Complaint: BEE STING Time Seen by Provider: 02/05/19 16:25 Hx Obtained From: Patient Hx Last Menstrual Period: 2 weeks ago Pain Intensity: 5 - Allergies/Home Medications Allergies/Adverse Reactions: Allergies Allergy/AdvReac Type Severity Reaction Status Date / Time bee pollen Allergy hives, Verified 02/05/19 16:11 migraine, stomach upset lactose Allergy INTOLERANT Verified 02/05/19 16:11 Home Medications: Home Medications diPHENhydraMINE PO* [Benadryl PO 25 MG TAB*] 50 mg PO ONCE PRN 02/05/19 [ History Confirmed 02/05/19] PMH/Surg Hx/FS Hx/Imm Hx Previously Healthy: Yes Psychological History: Anxiety, Depression - Surgical History Surgical History: Yes Surgery Procedure, Year, and Place: WISDOM TEETH, HERNIA REPAIR (JULY 2018) - Family History Known Family History: Positive: Non-Contributory - Social History Occupation: Works From/At Home Lives: With Family Alcohol Use: None Substance Use Type: None Smoking Status (MU): Former Smoker Type: Cigarettes Amount Used/How Often: 1/2 PPD X 20 YEARS Have You Smoked in the Last Year: No When Did the Patient Quit Smoking/Using Tobacco: 2014 - Immunization History Most Recent Influenza Vaccination: declined Most Recent Tetanus Shot: 07/26/14 Most Recent Pneumonia Vaccination: none Review of Systems All Other Systems Reviewed And Are Negative: Yes Constitutional: Positive: Negative Skin: Positive: Other - See HPI. Negative: Rash ENT: Negative: Other - Swelling of lips, tongue, or throat Respiratory: Negative: Shortness Of Breath Cardiovascular: Positive: Other - tachycardia Gastrointestinal: Positive: Negative Genitourinary: Positive: Negative Musculoskeletal: Positive: Decreased ROM - right middle finger, Edema - right middle finger Neurological: Positive: Negative Is Patient Immunocompromised?: No Physical Exam - Summary Physical Exam Summary: GENERAL APPEARANCE: Well developed, well nourished, alert and cooperative, and appears to be in no acute distress. MOUTH/THROAT: No swelling of the lips or tongue. Pharynx normal. No tonsilar inflammation. Uvula midline. Airway patent. NECK: Neck supple, non-tender without lymphadenopathy. CARDIAC: Normal S1 and S2. No S3, S4 or murmurs. Rhythm is regular. There is no peripheral edema, cyanosis or pallor. Extremities are warm and well perfused. Capillary refill is less than 2 seconds. Peripheral pulses intact. LUNGS: Clear to auscultation without rales, rhonchi, wheezing or diminished breath sounds. ABDOMEN: Positive bowel sounds. Soft, nondistended, nontender. No guarding or rebound. No masses or hepatosplenomegally. MUSKULOSKELETAL: Normal muscular development. Normal gait. EXTREMITIES: Mild erythema and edema of the right middle finger. ROM slightly limited due to edema. Circulation and sensation intact. SKIN: Skin normal color, texture and turgor. No hives present. Triage Information Reviewed: Yes Vital Signs: Initial Vital Signs Temp 97.9 F 02/05/19 16:06 Pulse 98 02/05/19 16:06 Resp 18 02/05/19 16:06 BP 114/74 02/05/19 16:06 Pulse Ox 97 02/05/19 16:06 Vital Signs Reviewed: Yes Allergic Reaction Course/Dx - Course Course Of Treatment: 38-year-old female presents to urgent care for a yellowjacket sting to her right middle finger. States she was stung approximately 3:00 PM. She was seen in the emergency room approximately one week ago for a bee sting in which she developed hives without swelling in the lips, tongue, or throat or any difficulty breathing however she was prescribed an epinephrine autoinjector at that time. States she used one of her autoinjectors immediately after she was stung and also took Benadryl 50 mg PO. States she has some redness and swelling of the right middle finger but never developed any hives, swelling of the lips, tongue, throat, or difficulty breathing. She did note a headache, tachycardia, and shakiness after using the autoinjector. She is afebrile with stable vital signs at this time. On exam she was in no acute distress, no evidence of any hives, had no swelling of the lips, tongue, throat, had a patent airway with clear bilateral breath sounds, mild erythema and edema of the right middle finger with some limited range of motion due to pain edema however circulation sensation were intact. She was given a dose of prednisone 40 mg PO to help with the localized reaction to the finger and recommended she continue this for 2 more days. Also recommending a nondrowsy [id number] antihistamine twice daily for any itching. I did send a prescription to replace the autoinjector that she used. She is to follow-up with her primary care provider as needed. Anticipatory guidance and warning symptoms are reviewed with the patient. Verbalizes understanding and agrees with plan of care. - Differential Dx/Diagnosis Differential Diagnosis/HQI/PQRI: Anaphylaxis, Local Allergic Reaction, Urticaria Provider Diagnosis: Yellow jacket sting Discharge ED - Sign-Out/Discharge Documenting (check all that apply): Patient Departure All imaging exams completed and their final reports reviewed: No Studies - Discharge Plan Condition: Stable Disposition: HOME Prescriptions: EPINEPHrine [Epipen] 0.3 mg IJ ONCE PRN #1 auto.injct PRN Reason: Allergy Symptoms predniSONE TAB* [Deltasone 20 MG TAB*] 40 mg PO DAILY 2 Days #4 tab Patient Education Materials: Insect Bite or Sting (ED), General Allergic Reaction (ED) Referrals: Yoko Gomes MD [Primary Care Provider] - If Needed Additional Instructions: To help reduce the swelling in the finger keep your hand elevated and apply ice for 15-20 minutes 3-4 times a day. Take prednisone 40 mg daily for a total of 3 days. We gave you the first dose in the clinic today start this tomorrow. You may use a nondrowsy [id number] antihistamine 1 tablet twice daily to help with any itching. I have sent a prescription in for a new EpiPen to replace the one you used today. Make sure you are keeping these with you at all times. Use at the first site of any swelling of the lips, tongue, throat, or difficulty breathing following a bee sting. Follow-up with your primary care provider as needed. Seek immediate medical attention in the emergency room if you develop swelling of the lips, tongue, throat, difficulty breathing, or any worsening of symptoms. - Billing Disposition and Condition Condition: STABLE Disposition: Home
== END 2019-02-05 17:00 | disposition home or self-care (01) ==
LOC: UCEAST 15:59
DX: S60.462A Insect bite (nonvenomous) of right middle finger, initial encounter (principal); R00.0 Tachycardia, unspecified; Z91.011 Allergy to milk products; Z87.891 Personal history of nicotine dependence; W57.XXXA Bitten or stung by nonvenomous insect and other nonvenomous arthropods, initial encounter; Y92.9 Unspecified place or not applicable
CPT/HCPCS: 99212; G0463; J7512